=== PATIENT | female | born 1990 | race American Indian/Alaskan Native ===

== ENCOUNTER 2018-01-31 12:23 | Inpatient (IN) | payer MEDICAID, OTHER ==
[2018-01-31 13:29] LABS: Bilirubin,Urine NEG (Negative); Blood,Urine NEG (Negative); Color,Urine Yellow (Yellow); Mucus,Urine FEW /HPF; Protein,Urine <15 mg/dL mg/dL (Negative)
[2018-01-31 13:35] LABS: Amphetamine Screen,Urine PRESUMPTIVE NEGATIVE; Benzodiazepines Screen,Urine PRESUMPTIVE NEGATIVE; Cocaine Screen,Urine PRESUMPTIVE NEGATIVE; Methadone Screen,Urine PRESUMPTIVE NEGATIVE; Opiate Screen,Urine PRESUMPTIVE NEGATIVE
[2018-01-31 13:45] LABS: Hematocrit 34.1 % (30.3-42.9); Hemoglobin 10.8 gm/dl (10.1-14.3); Mean Corpuscular HGB Conc 32 % (30-34); Mean Corpuscular Volume 78 fl (79-97); Platelet Count 331 K/mm3 (140-440); Red Blood Count 4.36 M/mm3 (3.65-5.03); Red Cell Distribution Width 13.9 % (13.2-15.2)
[2018-01-31 13:46] LABS: Mean Corpuscular Hemoglobin 25 pg (28-32)
[2018-01-31 13:53] LABS: Cannabinoid Screen,Urine PRESUMPTIVE POSITIVE
[2018-01-31 13:56] LABS: INR 0.89 (0.87-1.13)
[2018-01-31 13:57] LABS: Partial Thromboplastin Time 27.5 Sec. (24.2-36.6)
[2018-01-31 14:07] LABS: Alanine Aminotransferase 13 units/L (7-56); Albumin 3.2 g/dL (3.9-5); BUN/Creatinine Ratio 8; Blood Urea Nitrogen 3 mg/dL (7-17); Calcium 8.4 mg/dL (8.4-10.2); Hemolysis Index 1
[2018-01-31 14:08] LABS: Creatine Kinase MB 2.1 ng/mL (0.0-4.0)
[2018-01-31 14:09] LABS: Alanine Aminotransferase 14 units/L (7-56); Albumin 3.2 g/dL (3.9-5); Lipase 35 units/L (13-60)
[2018-01-31 14:11] LABS: Bilirubin,Direct < 0.2 mg/dL (0-0.2)
--- NOTE | 2018-01-31 14:42 | XRay Report ---
FINAL REPORT EXAM: XR CHEST 1V AP HISTORY: cp TECHNIQUE: upright single view chest PRIORS: Comparison is September 27, 2017 FINDINGS: Cardiac and mediastinal contours are unremarkable. No focal pulmonary infiltrate is identified. No pleural fluid collection seen. Pulmonary vasculature is unremarkable. IMPRESSION: Negative single-view chest
[2018-01-31] MEDS ORDERED: MAGNESIUM SULFATE 2GM/50ML 2 GM/50 ML BAG IV ONE (15:27)
--- NOTE | 2018-01-31 17:08 | Cat Scan Report ---
FINAL REPORT EXAM: CT ANGIO CHEST HISTORY: CP elevated dimer TECHNIQUE: Enhanced CT of the chest at 2.5 mm axial intervals following a pulmonary embolism protocol. Coronal and sagittal imaging were also obtained. Coronal oblique MIP projections were obtained. Contrast: 100 ml of Omnipaque 350 given IV. PRIORS: CXR 01/31/2018 FINDINGS: There is no evidence for pulmonary embolism in the main pulmonary artery, right and left pulmonary arteries or their major distributions. However, CT does not exclude distal pulmonary emboli. Otherwise, the lung parenchyma are expanded and clear with no evidence for parenchymal nodules, infiltrates, congestion, or pleural effusion. There is no evidence for mediastinal, hilar, or axillary adenopathy. Cardiovascular structures are within normal limits. No evidence for ventricular chamber enlargement is seen. Images through the lung bases include the upper abdomen which show no abnormalities of the visualized abdominal viscera. Bony structures demonstrate no focal abnormalities. IMPRESSION: No evidence for pulmonary embolism. Negative CT of the chest.
--- NOTE | 2018-01-31 17:59 | Emergency Department Report ---
ED Chest Pain HPI - General Chief Complaint: Chest Pain Stated Complaint: CHEST PAIN Time Seen by Provider: 01/31/18 14:26 Source: patient Mode of arrival: Ambulatory Limitations: No Limitations - History of Present Illness Initial Comments: Patient describes substernal chest tightness for the past 2-3 days which somewhat radiates to her back but is not pleuritic. She states that she has had some shortness of breath. She complains of paresthesias in both her hands for 3 weeks. The patient states that she has had swelling of her hands and legs for the past few weeks. She is 29th 30 weeks . She has not seen an OB doctor. She is 3 para 1 AB 1. She states that the reason she has not seen an OB doctor is because last time after she saw the OB doctor she had a miscarriage. She decided that it would be necessary for her gestation to mature to this point before seeking care. She states that she did not have any problems with her first who is her daughter, with her and apparently well MD Complaint: chest pain -: Gradual, days(s) Onset: during rest Pain Location: substernal Pain Radiation: back Severity: moderate Quality: tightness Consistency: intermittent, now resolved Improves With: nothing Worsens With: nothing Context: other ( ) re: dyspnea Other Symptoms: denies: cough, fever, syncope Treatments Prior to Arrival: none Aspirin use within the Past 7 Days: (0) No - Related Data Previous Rx's Medication Instructions Recorded Last Taken Type Vit Calc,Iron,Folic 1 each PO QDAY #60 tablet 09/27/17 Unknown Rx [ Vitamins] Allergies Allergy/AdvReac Type Severity Reaction Status Date / Time No Known Allergies Allergy Verified 09/27/17 13:10 Heart Score - HEART Score History: Slightly suspicious EKG: Normal Age: < 45 Risk factors: 1-2 risk factors Troponin: < normal limit HEART Score: 1 - Critical Actions Critical Actions: 0-3 pts:0.9-1.7%risk of adverse cardiac event.Candidate for discharge ED Review of Systems ROS: Stated complaint: CHEST PAIN Other details as noted in HPI Constitutional: denies: chills, fever Eyes: denies: eye pain, eye discharge, vision change ENT: denies: ear pain, throat pain Respiratory: denies: cough, shortness of breath, wheezing Cardiovascular: chest pain. denies: palpitations Endocrine: no symptoms reported Gastrointestinal: denies: abdominal pain, nausea, diarrhea Genitourinary: denies: urgency, dysuria, discharge Musculoskeletal: as per HPI. denies: back pain, joint swelling, arthralgia Skin: denies: rash, lesions Neurological: denies: headache, weakness, paresthesias Psychiatric: denies: anxiety, depression Hematological/Lymphatic: denies: easy bleeding, easy bruising ED Past Medical Hx - Past Medical History Previous Medical History?: No - Surgical History Past Surgical History?: No - Social History Smoking Status: Never Smoker Substance Use Type: None - Medications Home Medications: Home Medications Medication Instructions Recorded Confirmed Last Taken Type Vit Calc,Iron,Folic 1 each PO QDAY #60 tablet 09/27/17 Unknown Rx [ Vitamins] ED Physical Exam - General Limitations: No Limitations General appearance: alert, in no apparent distress - Head Head exam: Present: atraumatic, normocephalic - Eye Eye exam: Present: normal appearance. Absent: scleral icterus - ENT ENT exam: Present: mucous membranes moist - Neck Neck exam: Present: normal inspection - Respiratory Respiratory exam: Present: normal lung sounds bilaterally. Absent: respiratory distress - Cardiovascular Cardiovascular Exam: Present: regular rate, normal rhythm. Absent: systolic murmur, diastolic murmur, rubs, gallop - GI/Abdominal GI/Abdominal exam: Present: soft, distended, normal bowel sounds, organomegaly ( uterus consistent with 30 week ). Absent: tenderness, guarding, rebound, rigid - Extremities Exam Extremities exam: Present: other (bilateral pretibial edema and hand edema) - Back Exam Back exam: Present: normal inspection. Absent: CVA tenderness (R), CVA tenderness (L), muscle spasm, paraspinal tenderness, vertebral tenderness - Neurological Exam Neurological exam: Present: alert, oriented X3, CN II-XII intact. Absent: motor sensory deficit - Psychiatric Psychiatric exam: Present: normal affect, normal mood - Skin Skin exam: Present: warm, dry, intact, normal color. Absent: rash ED Course Vital Signs 01/31/18 01/31/18 01/31/18 12:27 13:18 14:29 Temperature 99 F Pulse Rate 116 H 87 Respiratory 20 23 18 Rate Blood Pressure 144/80 132/73 O2 Sat by Pulse 99 99 Oximetry - Reevaluation(s) Reevaluation #1: Patient had one elevated blood pressure reading but several normotensive readings. Her case was discussed with Dr. Paz Mederos the vacuum pan tender television equipment operator. She stated that she would arrange for monitoring when the patient gets admitted. Discussed the case with Dr. Moody. The patient is admitted for further care and evaluation. 01/31/18 18:01 CARMEN score - Carmen Score Age > 65: (0) No Aspirin use within the Past 7 Days: (0) No 3 or more CAD Risk Factors: (0) No 2 or more Angina events in past 24 hrs: (0) No Known CAD with more than 50% Stenosis: (0) No Elevated Cardiac Markers: (0) No ST Deviation Greater than 0.5mm: (0) No CARMEN Score: 0 ED Medical Decision Making - Lab Data Result diagrams: 01/31/18 13:24 01/31/18 13:24 Laboratory Results - last 24 hr 01/31/18 01/31/18 01/31/18 13:18 13:18 13:24 WBC 11.4 H RBC 4.36 Hgb 10.8 Hct 34.1 MCV 78 L MCH 25 L MCHC 32 RDW 13.9 Plt Count 331 PT INR APTT D-Dimer Sodium Potassium Chloride Carbon Dioxide Anion Gap BUN Creatinine Estimated GFR BUN/Creatinine Ratio Glucose Calcium Magnesium Total Bilirubin Direct Bilirubin Indirect Bilirubin AST ALT Alkaline Phosphatase Total Creatine Kinase CK-MB (CK-2) CK-MB (CK-2) Rel Index Troponin T NT-Pro-B Natriuret Pep Total Protein Albumin Albumin/Globulin Ratio Lipase HCG, Quant Urine Color Yellow Urine Turbidity Clear Urine pH 6.0 Ur Specific [place] 1.020 Urine Protein <15 mg/dl Urine Glucose (UA) 50 Urine Ketones Neg Urine Blood Neg Urine Nitrite Neg Urine Bilirubin Neg Urine Urobilinogen 2.0 Ur Leukocyte Esterase Neg Urine WBC (Auto) 2.0 Urine RBC (Auto) 7.0 U Epithel Cells (Auto) 10.0 Urine Mucus Few Urine Opiates Screen Presumptive negative Urine Methadone Screen Presumptive negative Ur Barbiturates Screen Presumptive negative Ur Phencyclidine Scrn Presumptive negative Ur Amphetamines Screen Presumptive negative U Benzodiazepines Scrn Presumptive negative Urine Cocaine Screen Presumptive negative U Marijuana (THC) Screen Presumptive positive Drugs of Abuse Note Disclamer Blood Type Antibody Screen 03/04/18 03/04/18 03/04/18 13:24 13:24 13:24 WBC RBC Hgb Hct MCV MCH MCHC RDW Plt Count PT 12.5 INR 0.89 APTT 27.5 D-Dimer Sodium 133 L Potassium 3.5 L Chloride 97.8 L Carbon Dioxide 22 Anion Gap 17 BUN 3 L Creatinine 0.4 L Estimated GFR > 60 BUN/Creatinine Ratio 8 Glucose 132 H Calcium 8.4 Magnesium Total Bilirubin 0.20 Direct Bilirubin Indirect Bilirubin AST 13 ALT 13 Alkaline Phosphatase 122 Total Creatine Kinase CK-MB (CK-2) CK-MB (CK-2) Rel Index Troponin T NT-Pro-B Natriuret Pep Total Protein 7.0 Albumin 3.2 L Albumin/Globulin Ratio 0.8 Lipase HCG, Quant 62213 H Urine Color Urine Turbidity Urine pH Ur Specific [place] Urine Protein Urine Glucose (UA) Urine Ketones Urine Blood Urine Nitrite Urine Bilirubin Urine Urobilinogen Ur Leukocyte Esterase Urine WBC (Auto) Urine RBC (Auto) U Epithel Cells (Auto) Urine Mucus Urine Opiates Screen Urine Methadone Screen Ur Barbiturates Screen Ur Phencyclidine Scrn Ur Amphetamines Screen U Benzodiazepines Scrn Urine Cocaine Screen U Marijuana (THC) Screen Drugs of Abuse Note Blood Type Antibody Screen 01/31/18 01/31/18 01/31/18 13:24 13:24 13:24 WBC RBC Hgb Hct MCV MCH MCHC RDW Plt Count PT INR APTT D-Dimer 1105.80 H Sodium Potassium Chloride Carbon Dioxide Anion Gap BUN Creatinine Estimated GFR BUN/Creatinine Ratio Glucose Calcium Magnesium 1.60 L Total Bilirubin < 0.20 Direct Bilirubin < 0.2 Indirect Bilirubin 0.0 AST 17 ALT 14 Alkaline Phosphatase 120 Total Creatine Kinase 71 CK-MB (CK-2) 2.1 CK-MB (CK-2) Rel Index 2.9 Troponin T < 0.010 NT-Pro-B Natriuret Pep 13.65 Total Protein 7.1 Albumin 3.2 L Albumin/Globulin Ratio 0.8 Lipase 35 HCG, Quant Urine Color Urine Turbidity Urine pH Ur Specific [place] Urine Protein Urine Glucose (UA) Urine Ketones Urine Blood Urine Nitrite Urine Bilirubin Urine Urobilinogen Ur Leukocyte Esterase Urine WBC (Auto) Urine RBC (Auto) U Epithel Cells (Auto) Urine Mucus Urine Opiates Screen Urine Methadone Screen Ur Barbiturates Screen Ur Phencyclidine Scrn Ur Amphetamines Screen U Benzodiazepines Scrn Urine Cocaine Screen U Marijuana (THC) Screen Drugs of Abuse Note Blood Type O POSITIVE Antibody Screen Negative - EKG Data -: EKG Interpreted by Me EKG shows normal: sinus rhythm, axis, intervals, QRS complexes, ST-T waves Rate: normal - EKG Data Interpretation: no acute changes - Radiology Data interpreted by me: CTA negative for pulmonary embolism Critical care attestation.: If time is entered above; I have spent that time in minutes in the direct care of this critically ill patient, excluding procedure time. ED Disposition Clinical Impression: 30 weeks gestation of , Hyponatremia, Hyperglycemia Chest pain Qualifiers: Chest pain type: unspecified Qualified Code(s): R07.9 - Chest pain, unspecified Edema Qualifiers: Edema type: unspecified Qualified Code(s): R60.9 - Edema, unspecified Disposition: DC-09 OP ADMIT IP TO THIS HOSP Is pt being admited?: No Does the pt Need Aspirin: No Condition: Stable Instructions: Chest Pain (ED) Referrals: PRIMARY CARE, [Primary Care Provider] - 3-5 Days Time of Disposition: 18:04
--- NOTE | 2018-01-31 19:06 | History and Physical Report ---
History of Present Illness Chief complaint: My chest hurts History of present illness: 27 YO Female A1 with No PMH presents to ED for evaluation. Pt has not had any care. Pt states that she has experienced pain in her chest for the past 3 days with persistent symptoms during the entire time frame. Pain is 5/10 , substernal, intermittent, not worsened with exertion, or relieved with rest, radiates to her back, and is associated with shortness of breath. Pt acknowledges intermittent bilateral leg swelling with her . Pt denies fever, chills, palpitations, NVD, trauma, productive cough, syncope, recent ill contacts, BRBPR, Skin rash, polyuria, polydipsia, orthopnea, or PND. Pt seen and evaluated in ED. OB consulted in ED. Past History Past Medical History: No medical history, other (reviewed) Past Surgical History: No surgical history, Other (reviewed) Social history: single Family history: hypertension Medications and Allergies Allergies Allergy/AdvReac Type Severity Reaction Status Date / Time No Known Allergies Allergy Verified 09/27/17 13:10 Home Medications Medication Instructions Recorded Confirmed Last Taken Type Vit Calc,Iron,Folic 1 each PO QDAY #60 tablet 09/27/17 Unknown Rx [ Vitamins] Review of Systems Constitutional: weight gain, no weight loss, no fever, no chills Ears, nose, mouth and throat: no ear pain, no ear discharge, no tinnitis, no decreased hearing, no nose pain, no nasal congestion, no nasal discharge Cardiovascular: chest pain, shortness of breath, no orthopnea, no palpitations, no rapid/irregular heart beat, no syncope, no lightheadedness, no paroxysmal nocturnal dyspnea Respiratory: no cough, no cough with sputum, no excessive sputum, no hemoptysis Gastrointestinal: no abdominal pain, no nausea, no vomiting, no diarrhea, no constipation Genitourinary Female: no pelvic pain, no flank pain, no menorrhagia, no dysuria , no urinary frequency, no urgency Rectal: no pain, no incontinence, no bleeding Musculoskeletal: no neck stiffness, no neck pain, no shooting arm pain, no arm numbness/tingling, no low back pain, no shooting leg pain, no leg numbness/ tingling Integumentary: no rash, no pruritis, no redness, no sores, no wounds, no jaundice, no boils Neurological: no transient paralysis, no paralysis, no weakness, no parathesias , no numbness, no tingling Psychiatric: no anxiety, no memory loss, no change in sleep habits, no sleep disturbances, no insomnia, no hypersomnia, no change in appetite Endocrine: no heat intolerance, no polyphagia, no excessive thirst, no weight change Hematologic/Lymphatic: no easy bruising, no easy bleeding, no lymphadenopathy, no lymphedema Allergic/Immunologic: no urticaria, no allergic rhinitis, no wheezing Exam - Constitutional Vitals: Temp Pulse Resp BP Pulse Ox 99 F 87 18 132/73 99 01/31/18 12:27 01/31/18 14:29 01/31/18 14:29 01/31/18 14:29 01/31/18 14:29 General appearance: Present: no acute distress, obese - EENT Eyes: Present: PERRL ENT: hearing intact, clear oral mucosa - Neck Neck: Present: supple, normal ROM - Respiratory Respiratory effort: normal Respiratory: bilateral: CTA - Cardiovascular Heart Sounds: Present: S1 & S2. Absent: rub, click - Extremities Extremities: pulses symmetrical, No edema Peripheral Pulses: within normal limits - Abdominal General gastrointestinal: Present: soft, non-tender, non-distended, normal bowel sounds Female genitourinary: Present: normal, other (Gravid uterus) - Integumentary Integumentary: Present: clear, warm, dry - Musculoskeletal Musculoskeletal: gait normal, strength equal bilaterally - Psychiatric Psychiatric: appropriate mood/affect, intact judgment & insight - Neurologic Neurologic: CNII-XII intact, moves all extremities Results - Labs CBC & Chem 7: 01/31/18 13:24 01/31/18 13:24 Labs: Abnormal lab results 01/31/18 01/31/18 01/31/18 Range/Units 13:24 13:24 13:24 WBC 11.4 H (4.5-11.0) K/mm3 MCV 78 L (79-97) fl MCH 25 L (28-32) pg D-Dimer (0-234) ng/mlDDU Sodium 133 L (137-145) mmol/L Potassium 3.5 L (3.6-5.0) mmol/L Chloride 97.8 L (98-107) mmol/L BUN 3 L (7-17) mg/dL Creatinine 0.4 L (0.7-1.2) mg/dL Glucose 132 H (65-100) mg/dL Magnesium (1.7-2.3) mg/dL Albumin 3.2 L (3.9-5) g/dL HCG, Quant 15797 H (0-4) mIU/mL 01/31/18 01/31/18 Range/Units 13:24 13:24 WBC (4.5-11.0) K/mm3 MCV (79-97) fl MCH (28-32) pg D-Dimer 1105.80 H (0-234) ng/mlDDU Sodium (137-145) mmol/L Potassium (3.6-5.0) mmol/L Chloride (98-107) mmol/L BUN (7-17) mg/dL Creatinine (0.7-1.2) mg/dL Glucose (65-100) mg/dL Magnesium 1.60 L (1.7-2.3) mg/dL Albumin 3.2 L (3.9-5) g/dL HCG, Quant (0-4) mIU/mL Assessment and Plan - Patient Problems (1) Chest pain Current Visit: Yes Status: Acute Qualifiers: Chest pain type: unspecified Qualified Code(s): R07.9 - Chest pain, unspecified Plan to address problem: Serial cardiac enzymes, ekg, telemetry, Echo, supplemental oxygen, Cardiology consulted, (2) 30 weeks gestation of Current Visit: Yes Status: Acute Plan to address problem: FIRE EQUIPMENT INSPECTOR HELPER consulted, (3) DVT prophylaxis Current Visit: Yes Status: Acute Plan to address problem: SCD to ble while in bed,
[2018-01-31] MEDS ORDERED: PROVENTIL IH PRN (19:15)
[2018-01-31] MEDS ORDERED: TYLENOL PO PRN (19:15)
[2018-01-31] MEDS ORDERED: SODIUM CHLORIDE FLUSH SYRINGE 10 ML IV PRN (19:15)
[2018-01-31] MEDS ORDERED: ZOFRAN IV PRN (19:15)
[2018-01-31 19:30] LABS: Basophils # (Auto) 0.1 K/mm3 (0.0-0.1); Basophils % (Auto) 0.6 % (0.0-1.8); Eosinophils # (Auto) 0.1 K/mm3 (0.0-0.4); Hematocrit 34.2 % (30.3-42.9); Hemoglobin 11.1 gm/dl (10.1-14.3); Lymphocytes # (Auto) 2.3 K/mm3 (1.2-5.4); Lymphocytes % (Auto) 19.2 % (13.4-35.0); Mean Corpuscular HGB Conc 32 % (30-34); Mean Corpuscular Hemoglobin 25 pg (28-32); Mean Corpuscular Volume 77 fl (79-97); Monocytes # (Auto) 0.6 K/mm3 (0.0-0.8); Monocytes % (Auto) 4.9 % (0.0-7.3); Platelet Count 302 K/mm3 (140-440); Red Blood Count 4.43 M/mm3 (3.65-5.03); Red Cell Distribution Width 14.2 % (13.2-15.2)
--- NOTE | 2018-01-31 19:51 | Ultrasound Report ---
FINAL REPORT EXAM: US OB FOLLOW UP HISTORY: gestational age abnormalities TECHNIQUE: Limited obstetrical ultrasound PRIORS: None. FINDINGS: LMP: unknown US Age (average) = 29 w 1 d EFW (BPD,HC,AC,FL) = 1455 g +/- 97g US EDC 04/17/2018 HC/AC 1.01 BPD 7.2 cm corresponding to estimated age 28 weeks 5 days HC 26.5 cm corresponding to estimated age 28 weeks 5 days AC 26.3 cm corresponding to estimated age 30 weeks 2 days FL 5.6 cm corresponding to estimated age 29 weeks 1 day Presentation: Cephalic Activity: Monitored Placental location: Anterior Placental grade: 2 Placenta: Placenta is thickened and complex measuring 7.3 cm in thickness. There probable numerous venous lakes within the placenta. Cardiac motion: 128 BPM using M-mode doppler Amniotic Fluid Volume: Adequate Cervical Length: 4.0 cm IMPRESSION: Single intrauterine viable with an approximate age of 29 weeks 1 days. Placenta is thickening complex, probably contain numerous venous lakes.
[2018-01-31 20:23] LABS: BUN/Creatinine Ratio 10; Blood Urea Nitrogen 4 mg/dL (7-17); Calcium 8.4 mg/dL (8.4-10.2); Hemolysis Index 0
[2018-01-31 21:41] VITALS: BP 129/72
== END 2018-02-01 00:33 | disposition left against medical advice (07) | DRG 781 ==
LOC: ED 12:23 → 4A 19:15
PROVIDERS: ADMIT Internal Medicine; ATTEND Internal Medicine
DX: O99.283 Endocrine, nutritional and metabolic diseases complicating pregnancy, third trimester (principal); Z3A.30 30 weeks gestation of pregnancy; R07.9 Chest pain, unspecified; Z82.49 Family history of ischemic heart disease and other diseases of the circulatory system; Z3A.01 Less than 8 weeks gestation of pregnancy
CPT/HCPCS: 36415; 71045; 71275; 76816; 80048; 80053; 80074; 80307; 81001; 82550; 82553; 83690; 83735; 83880; 84484; 84702; 85025; 85027; 85379; 85610; 85730; 86850; 86900; 86901; 93005; 93010; 96374; J3475; Q9967

== ENCOUNTER 2018-03-18 18:26 | Inpatient (IN) | payer OTHER ==
[2018-03-18] MEDS ORDERED: LACTATED RINGERS 500 ML IV ONE (19:34)
--- NOTE | 2018-03-18 20:38 | Ultrasound Report ---
FINAL REPORT PROCEDURE: US OB LIMITED TECHNIQUE: Real-time limited sonographic examination was performed for evaluation of size, position, heartbeat, fluid volume for each fetus with image documentation (1 or more fetuses). CPT 04556 HISTORY: Verify FHT COMPARISON: No prior studies are available for comparison. FINDINGS: There is no amniotic fluid. Femur length is 6.73 centimeters indicating a gestational age of 34 weeks and 4 days. Estimated date of delivery is 04/25/2018. There is no cardiac activity. IMPRESSION: There is no cardiac activity. Findings are consistent with intrauterine demise. There is no amniotic fluid.
[2018-03-18] MEDS ORDERED: PITOCin/NS 20 UNIT/1000ML DRIP 20,000 MILLIUNITS/1,000 ML BAG IV ONE (20:58)
[2018-03-18] MEDS ORDERED: XYLOCAINE 2% INFILTRATI ONE (20:59)
--- NOTE | 2018-03-18 21:26 | History and Physical Report ---
History of Present Illness Date of examination: 03/18/18 Date of admission: 03/18/18 20:24 History of present illness: 27 YOBF [id number] EDC 04/17/2019 by 29 week US performed at one of her earlier triage visits in triage no care presents to triage c/o contractions. Triage nurse could not last picker heart tones some with Dopplers. Ultrasound revealed no heart tones no amniotic fluid. Exam by triage nurse revealed the patient to be 7 cm. Patient went on to deliver while I was in route to the hospital. Past History Past Medical History: no pertinent history Past Surgical History: no surgical history Social history: other (MJ use) - Obstetrical History Expected Date of Delivery: 04/17/18 Actual Gestation: 35 Week(s) 5 Day(s) : 3 Medications and Allergies Allergies Allergy/AdvReac Type Severity Reaction Status Date / Time No Known Allergies Allergy Verified 09/27/17 13:10 Home Medications Medication Instructions Recorded Confirmed Last Taken Type Vit Calc,Iron,Folic 1 each PO QDAY #60 tablet 09/27/17 Unknown Rx [ Vitamins] Active Meds: Active Medications Oxytocin/Sodium Chloride (Pitocin/Ns 20 Unit/1000ml Drip) 20 units in 1,000 mls @ 0 mls/hr IV DIRECT DORIAN - Vital Signs Vital signs: Vital Signs Temp Resp 99.4 F 16 03/18/18 19:30 03/18/18 19:30 Temp Pulse Resp BP Pulse Ox 99.4 F 16 03/18/18 19:30 03/18/18 19:30 - Physical Exam Breasts: Positive: deferred Cardiovascular: Regular rate Lungs: Positive: Clear to auscultation Abdomen: Positive: normal appearance, soft Genitourinary (Female): Positive: normal external genitalia Vagina: Positive: other (umbilical cord shown with placenta still in utero) Results Result Diagrams: 03/18/18 20:30 All other labs normal. Assessment and Plan - Patient Problems (1) demise > 22 weeks, delivered, current hospitalization Current Visit: Yes Status: Acute Plan to address problem: Precipitous delivery labor and delivery will give a care (2) Insufficient care in third trimester Current Visit: Yes Status: Acute (3) History of cannabis abuse Current Visit: Yes Status: Acute
[2018-03-18 21:44] LABS: Basophils % (Auto) 0.2 % (0.0-1.8); Eosinophils # (Auto) 0.1 K/mm3 (0.0-0.4); Eosinophils % (Auto) 0.9 % (0.0-4.3); Hemoglobin 11.5 gm/dl (10.1-14.3); Lymphocytes # (Auto) 2.2 K/mm3 (1.2-5.4); Lymphocytes % (Auto) 18.8 % (13.4-35.0); Mean Corpuscular HGB Conc 32 % (30-34); Mean Corpuscular Volume 73 fl (79-97); Monocytes # (Auto) 0.7 K/mm3 (0.0-0.8); Monocytes % (Auto) 6.2 % (0.0-7.3); Platelet Count 369 K/mm3 (140-440); Red Blood Count 4.91 M/mm3 (3.65-5.03); Red Cell Distribution Width 15.5 % (13.2-15.2)
[2018-03-18] MEDS ORDERED: PITOCin/NS 20 UNIT/1000ML DRIP 20 UNITS/1,000 ML BAG IV SCH (22:00)
[2018-03-18 22:05] LABS: Amphetamine Screen,Urine PRESUMPTIVE NEGATIVE; Benzodiazepines Screen,Urine PRESUMPTIVE NEGATIVE; Cannabinoid Screen,Urine PRESUMPTIVE NEGATIVE; Cocaine Screen,Urine PRESUMPTIVE NEGATIVE; Methadone Screen,Urine PRESUMPTIVE NEGATIVE; Opiate Screen,Urine PRESUMPTIVE NEGATIVE
[2018-03-18 22:06] LABS: Bacteria,Urine 1+ /HPF (Negative); Bilirubin,Urine NEG (Negative); Blood,Urine MOD (Negative); Color,Urine Yellow (Yellow); Mucus,Urine FEW /HPF; Urobilinogen,Urine < 2.0 mg/dL (<2.0)
[2018-03-18 22:10] LABS: Mean Corpuscular Hemoglobin 23 pg (28-32)
[2018-03-18 22:13] LABS: Hepatitis C Virus Antibody Non-Reactive (NonReactive)
[2018-03-18 22:17] LABS: Rubella IgG Antibody Immune (Immune)
--- NOTE | 2018-03-18 22:55 | Procedure Note ---
OB Delivery Note - Delivery Date of Delivery: 03/18/18 Surgeon: JEREMIAH SINCLAIR Estimated blood loss: 500cc - Vaginal Intrapartum events: no care, precipitous labor- <3hr, other(please specify) (intrauterine demise) Delivery induction: none Delivery monitor: none Route of delivery: Delivery placenta: spontaneous Episiotomy: none Delivery laceration: none Anesthesia: none Delivery comments: Patient had a precipitous delivered by nursing staff prior to my arriving. I delivered the placenta intact. - A at 1 minute: 0 at 5 minutes: 0 Infant Gender: Female
[2018-03-19] MEDS ORDERED: TUCKS PAD TP PRN (04:22)
[2018-03-19] MEDS ORDERED: BENADRYL PO PRN (04:22)
[2018-03-19] MEDS ORDERED: ZOFRAN IV PRN (04:22)
[2018-03-19] MEDS ORDERED: PHENERGAN PO PRN (04:22)
[2018-03-19] MEDS ORDERED: LANSINOH TP PRN (04:22)
[2018-03-19] MEDS ORDERED: SODIUM CHLORIDE FLUSH SYRINGE 10 ML IV NR (04:22)
[2018-03-19] MEDS ORDERED: TYLENOL PO PRN (04:22)
[2018-03-19] MEDS ORDERED: MILK OF MAGNESIA PO PRN (04:22)
[2018-03-19] MEDS ORDERED: PHENERGAN PR PRN (04:22)
[2018-03-19] MEDS ORDERED: DULCOLAX PR PRN (04:22)
[2018-03-19] MEDS ORDERED: MOTRIN PO SCH (06:00)
--- NOTE | 2018-03-19 07:52 | Progress Note ---
Assessment and Plan patient resting w/o complaints, desires d/c home today. Will wait for H&H @1050 , if stable can go home. no s/s anemia. Patient offered depo - declined. josefa ROBERTSON. Advised she needs to f/u in our office 4 weeks. - Patient Problems (1) (spontaneous vaginal delivery) Current Visit: Yes Status: Acute (2) demise > 22 weeks, delivered, current hospitalization Current Visit: Yes Status: Acute Subjective - Subjective Date of service: 03/19/18 Principal diagnosis: day 1, IUFD, no care Patient reports: appetite normal, voiding normally, pain well controlled, ambulating normally, no dizzy ambulation, no nauseated [place]on: Objective - Vital Signs Latest vital signs: Vital Signs Temp Pulse Resp BP 03/19/18 04:15 98.3 F 96 H 20 100/50 03/19/18 00:35 98.2 F 88 20 107/55 03/18/18 21:26 98.2 F 20 03/18/18 19:30 99.4 F 16 Intake and Output 03/18/18 03/18/18 03/19/18 15:59 23:59 07:59 Intake Total 240 Balance 240 Intake: Oral 240 Other: Total, Intake Amount 240 # Voids Void 1 Weight 113.398 kg Estimated Blood Loss 500 - Exam Breasts: Present: normal Cardiovascular: Present: Regular rate Lungs: Present: Clear to auscultation, Normal air movement Abdomen: Present: normal appearance, soft Vulva: both: normal Uterus: Present: normal, firm, fundal height at umbilicus Extremities: Present: normal - Labs Labs: Abnormal lab results 03/18/18 Range/Units 20:30 WBC 11.8 H (4.5-11.0) K/mm3 MCV 73 L (79-97) fl MCH 23 L (28-32) pg RDW 15.5 H (13.2-15.2) % Seg Neutrophils % 73.9 H (40.0-70.0) % Seg Neutrophils # 8.7 H (1.8-7.7) K/mm3
[2018-03-19 11:42] LABS: Hematocrit 26.9 % (30.3-42.9); Hemoglobin 8.3 gm/dl (10.1-14.3)
--- NOTE | 2018-03-19 12:02 | Discharge Summary ---
Providers - Providers Date of Admission: 03/18/18 20:24 Date of discharge: 03/19/18 (desires d/c home) Attending physician: JEREMIAH SINCLAIR Primary care physician: SEPIDEH VIEIRA Hospitalization Reason for admission: labor ([facility]) Delivery: Episiotomy: none Laceration: none Other procedures: none complications: none Discharge diagnosis: delivery ([facility]) baby: female Hospital course: uncomplicated vaginal delivery Condition at discharge: Good Disposition: [id number] TO HOME OR SELFCARE - Discharge Diagnoses (1) (spontaneous vaginal delivery) Status: Acute (2) demise > 22 weeks, delivered, current hospitalization Status: Acute (3) Anemia due to blood loss, acute Status: Acute Plan - Discharge Medications Prescriptions: Ibuprofen [Motrin 800 MG tab] 800 mg PO Q8HR PRN #30 tablet PRN Reason: Pain - Provider Discharge Summary Activity: routine, no sex for 6 weeks, no heavy lifting 4 weeks, no strenuous exercise Diet: routine Instructions: routine Additional instructions: [] Smoking cessation referral if applicable(refer to patient education folder for contact #) [] Refer to [facility]'s [facility] Booklet Call your doctor immediately for: * Fever > 100.5 * Heavy vaginal bleeding ( >1 pad per hour) * Severe persistent headache * Shortness of breath * Reddened, hot, painful area to leg or breast * Drainage or odor from incision. * Keep incision clean and dry at all times and follow doctor's instructions regarding bathing/showering - Follow up plan Follow up: SEPIDEH VIEIRA MD [Primary Care Provider] - 7 Days HEATHER SHANKAR CNM [Advanced Practice Nurse] - 04/22/18 (please call [phone] to schedule a follow up appointment in 4 weeks. Call for any questions or concerns.)
[2018-03-19 16:49] VITALS: BP 115/73
== END 2018-03-19 17:09 | disposition home or self-care (01) | DRG 775 ==
LOC: TRG 18:26 → LD 18:27 → TRG 20:23 → LD 20:24 → OB 03-19 00:47
PROVIDERS: ADMIT Obstetrics & Gynecology; ATTEND Obstetrics & Gynecology
PROC: 10E0XZZ Delivery of Products of Conception, External Approach (ICD-10-PCS; principal; 2018-03-19)
DX: O60.14X0 Preterm labor third trimester with preterm delivery third trimester, not applicable or unspecified (principal); O36.4XX0 Maternal care for intrauterine death, not applicable or unspecified; D62 Acute posthemorrhagic anemia; Z3A.29 29 weeks gestation of pregnancy; Z37.1 Single stillbirth; O62.3 Precipitate labor; O09.33 Supervision of pregnancy with insufficient antenatal care, third trimester; O90.81 Anemia of the puerperium
CPT/HCPCS: 36415; 76815; 80307; 81001; 82962; 85014; 85018; 85025; 86592; 86706; 86762; 86803; 86850; 86900; 86901; 87806; 88307; J2590